=== PATIENT | male | born 1985 | race Caucasian/White ===

== ENCOUNTER 2017-02-07 13:48 | Emergency (ER) | payer SELFPAY ==
[~2017-02-07] VITALS: Ht 175.3 cm; Wt 100.0 kg
[~2017-02-07 13:48] MED LIST: BACTRIM DS1 TAB PO; DOXYCYCL HYC100 MG PO; LORTAB 1010 MG PO; NO HOME MEDS; ULTRAM50 M1 PO
[2017-02-07 13:50] VITALS: BP 137/82
[2017-02-08] MEDS ORDERED: BACTRIM DS1 TAB PO (03:14)
== END 2017-02-07 15:12 | disposition left against medical advice (07) | DRG 951 ==
LOC: ED 13:48 → LWOBS 15:12
DX: Z91.19 Patient's noncompliance with other medical treatment and regimen (principal)

== ENCOUNTER 2017-02-08 02:18 | Emergency (ER) | payer SELFPAY ==
[~2017-02-08] VITALS: Ht 175.3 cm; Wt 103.8 kg
[2017-02-08] MEDS ORDERED: BACTRIM DS1 TAB PO (03:14)
[2017-02-08 03:31] VITALS: BP 132/81
== END 2017-02-08 03:28 | disposition home or self-care (01) | DRG 603 ==
LOC: ED 02:18
DX: L08.9 Local infection of the skin and subcutaneous tissue, unspecified (principal); M79.674 Pain in right toe(s)

== ENCOUNTER 2020-10-05 14:08 | Emergency (ER) | payer SELFPAY ==
[~2020-10-05] VITALS: Ht 175.3 cm; Wt 130.9 kg
[2020-10-05] MEDS ORDERED: MAXZIDE-2537.5 MG/TA PO (14:32)
[2020-10-05] MEDS ORDERED: PROAIR HFA108 MCG/AC IN (14:33)
[2020-10-05 14:49] LABS: HEMATOCRIT 45.2 % (39.0-50.0); HEMOGLOBIN 14.1 g/dl (14.0-18.0); IMMATURE GRANULOCYTES 0.7 % (0.0-5.0); MEAN CORPUSCULAR HGB 29.8 pG CALC (26.0-32.0); MEAN CORPUSCULAR HGB CONC 31.2 g/dL CAL (32.0-36.0); NEUT# 6.72 thou/uL (1.82-7.42); RED BLOOD COUNT 4.73 mill/uL (4.70-6.10); RED CELL DISTRI WIDTH 14.6 % (11.5-15.5)
[2020-10-05 14:55] LABS: MEAN CELL VOLUME 95.6 fL CALC (80.0-100.0)
[2020-10-05 15:02] LABS: ALBUMIN 3.5 g/dL (3.2-5.0); ALKALINE PHOSPHATASE 90 u/l (38-126); BUN 22 mg/dL (9-20); BUN/CREATININE RATIO 23 (12-20 (CALC)); CHLORIDE 102 mmol/l (95-108); CREATININE 0.9 mg/dL (0.7-1.3); GFR > 60 ML/MIN (>=60 (CALC)); GFR FOR AFR.AMER. > 60 ML/MIN (>=60 (CALC)); SODIUM 132 mmol/l (137-146); TOTAL PROTEIN 6.8 g/dL (6.3-8.2)
[2020-10-05 15:06] LABS: ANION GAP 15 (6-22 (CALC)); BILIRUBIN, TOTAL 1.3 mg/dL (0.0-1.4); CARBON DIOXIDE 20 mmol/l (22-30); SGOT/AST 168 u/l (17-59)
[2020-10-05 15:31] LABS: TSH, 3RD GENERATION 4.82 uIU/mL (0.47 - 4.68)
[2020-10-05 15:40] LABS: URINE BILIRUBIN - DIPSTICK NEGATIVE (NEGATIVE); URINE BLOOD DIPSTICK TRACE-INTACT (NEGATIVE); URINE COLOR YELLOW; URINE GLUCOSE - DIPSTICK NEGATIVE (NEGATIVE); URINE KETONE NEGATIVE (NEGATIVE); URINE LEUK ESTERASE NEGATIVE (NEGATIVE); URINE PROTEIN - DIPSTICK TRACE mg/dL (NEG-TRACE); URINE SPECIFIC GRAVITY 1.025; URINE UROBILINOGEN - DIPSTICK 0.2 E.U./dL (0.2)
[2020-10-05 15:41] LABS: URINE NITRITE - DIPSTICK NEGATIVE (Negative)
[2020-10-05 17:30] VITALS: BP 145/80
== END 2020-10-05 21:04 | disposition short-term general hospital (02) | DRG 316 ==
LOC: ED 14:08
PROVIDERS: Emergency Medicine
DX: I27.20 Pulmonary hypertension, unspecified (principal); R74.8 Abnormal levels of other serum enzymes; F19.10 Other psychoactive substance abuse, uncomplicated; J45.909 Unspecified asthma, uncomplicated; F17.210 Nicotine dependence, cigarettes, uncomplicated; Z20.822 Contact with and (suspected) exposure to COVID-19
CPT/HCPCS: Q9967

== ENCOUNTER 2020-10-14 16:09 | Emergency (ER) | payer MEDICAID ==
[~2020-10-14] VITALS: Ht 175.3 cm; Wt 118.0 kg
[~2020-10-14 16:09] MED LIST changes: +MAXZIDE-2537.5 MG/TA PO; +PROAIR HFA108 MCG/AC IN
[2020-10-14 17:02] LABS: IMMATURE GRANULOCYTES 0.2 % (0.0-5.0); MEAN CORPUSCULAR HGB CONC 31.9 g/dL CAL (32.0-36.0); NEUT# 7.65 thou/uL (1.82-7.42); RED CELL DISTRI WIDTH 14.9 % (11.5-15.5)
[2020-10-14 17:16] LABS: ALBUMIN 3.4 g/dL (3.2-5.0); ALKALINE PHOSPHATASE 75 u/l (38-126); ANION GAP 16 (6-22 (CALC)); BILIRUBIN, TOTAL 1.8 mg/dL (0.0-1.4); BUN 30 mg/dL (9-20); BUN/CREATININE RATIO 24 (12-20 (CALC)); CARBON DIOXIDE 20 mmol/l (22-30); CHLORIDE 100 mmol/l (95-108); CREATININE 1.2 mg/dL (0.7-1.3); ETHYL ALCOHOL 0 mg/dl (0-30); GFR > 60 ML/MIN (>=60 (CALC)); GFR FOR AFR.AMER. > 60 ML/MIN (>=60 (CALC)); POTASSIUM 4.8 mmol/l (3.5-5.1); SODIUM 131 mmol/l (137-146); TOTAL PROTEIN 7.1 g/dL (6.3-8.2)
[2020-10-14 17:23] LABS: SGOT/AST 343 u/l (17-59)
[2020-10-14 19:05] LABS: INTERNATIONAL NORMALIZED RATIO 1.7 RATIO (0.7-1.3); PROTHROMBIN TIME 17.2 SECONDS (9.0-12.5)
[2020-10-14 19:06] LABS: D-DIMER 11.05 mg/L (0.19-0.60)
[2020-10-14 19:11] LABS: URINE BILIRUBIN - DIPSTICK NEGATIVE (NEGATIVE); URINE BLOOD DIPSTICK NEGATIVE (NEGATIVE); URINE COLOR YELLOW; URINE GLUCOSE - DIPSTICK NEGATIVE (NEGATIVE); URINE KETONE NEGATIVE (NEGATIVE); URINE LEUK ESTERASE NEGATIVE (NEGATIVE); URINE PROTEIN - DIPSTICK NEGATIVE (NEG-TRACE); URINE SPECIFIC GRAVITY 1.015
[2020-10-14 19:12] LABS: URINE NITRITE - DIPSTICK NEGATIVE (Negative)
[2020-10-14 22:00] VITALS: BP 121/81
--- NOTE | 2020-10-17 14:53 | NUR ---
FINAL RESULTS FAXED TO [facility]
== END 2020-10-14 22:31 | disposition short-term general hospital (02) | DRG 291 ==
LOC: ED 16:09
DX: I50.9 Heart failure, unspecified (principal); J18.9 Pneumonia, unspecified organism; R18.8 Other ascites; K72.90 Hepatic failure, unspecified without coma; I27.20 Pulmonary hypertension, unspecified; R79.9 Abnormal finding of blood chemistry, unspecified; F19.10 Other psychoactive substance abuse, uncomplicated; J45.909 Unspecified asthma, uncomplicated; F17.200 Nicotine dependence, unspecified, uncomplicated; Z91.19 Patient's noncompliance with other medical treatment and regimen; Z20.822 Contact with and (suspected) exposure to COVID-19
CPT/HCPCS: J2060; Q9967

== ENCOUNTER 2021-11-19 11:48 | Inpatient (IN) | payer MEDICAID ==
[2021-11-19] VITALS (45 sets, daily range): BP systolic 103–147; BP diastolic 65–110
[~2021-11-19] VITALS: Ht 175.3 cm; Wt 104.5 kg
--- NOTE | 2021-11-19 11:48 | NUR ---
PT TO ROOM VIA WC
--- NOTE | 2021-11-19 11:51 | NUR ---
STROKE ALERT CALLED AT THIS TIME
--- NOTE | 2021-11-19 12:05 | NUR ---
NURY LEY NOTIFIES [employer] DEPARTMENT MANAGER OF ISSUES WITH TELENEURO. TELENEURO DOC HAS NOT CALLED INTO [facility] YET. SOFTWARE TRAINER NOTIFIED IMMEDIATLEY.
--- NOTE | 2021-11-19 12:07 | NUR ---
BOOTMAKER HAND IN CONTACT WITH TELE NEURO DOC. TELENEURO UNABLE TO LOG INTO [employer], DELAYING CONTACT WITH PT. BOOTMAKER HAND AWARE, PROVIDER AWARE
[2021-11-19 12:10] LABS: IMMATURE GRANULOCYTES 0.3 % (0.0-5.0); MEAN CELL VOLUME 92.1 fL CALC (80.0-100.0); MEAN CORPUSCULAR HGB CONC 32.6 g/dL CAL (32.0-36.0); NEUT# 6.32 thou/uL (1.82-7.42); RED BLOOD COUNT 4.67 mill/uL (4.70-6.10); RED CELL DISTRI WIDTH 13.4 % (11.5-15.5)
[2021-11-19 12:22] LABS: ALBUMIN 3.9 g/dL (3.2-5.0); ALKALINE PHOSPHATASE 70 u/l (38-126); BUN 12 mg/dL (9-20); BUN/CREATININE RATIO 11 (12-20 (CALC)); CARBON DIOXIDE 25 mmol/l (22-30); CHLORIDE 107 mmol/l (95-108); CREATININE 1.1 mg/dL (0.7-1.3); GFR FOR AFR.AMER. > 60 ML/MIN (>=60 (CALC)); GFR OTHER RACES > 60 ML/MIN (>=60 (CALC)); SODIUM 142 mmol/l (137-146)
[2021-11-19 12:25] LABS: ANION GAP 14 (6-22 (CALC)); POTASSIUM 4.1 mmol/l (3.5-5.1); SGOT/AST 23 u/l (17-59)
[2021-11-19 12:26] LABS: INTERNATIONAL NORMALIZED RATIO 1.1 RATIO (0.7-1.3); PROTHROMBIN TIME 11.1 SECONDS (9.0-12.5)
[2021-11-19 14:55] LABS: URINE BILIRUBIN - DIPSTICK NEGATIVE (NEGATIVE); URINE BLOOD DIPSTICK NEGATIVE (NEGATIVE); URINE COLOR YELLOW; URINE GLUCOSE - DIPSTICK NEGATIVE (NEGATIVE); URINE KETONE NEGATIVE (NEGATIVE); URINE LEUK ESTERASE NEGATIVE (NEGATIVE); URINE PH 5.5 (4.5-8.0); URINE PROTEIN - DIPSTICK 30 mg/dL (NEG-TRACE); URINE SPECIFIC GRAVITY 1.025; URINE UROBILINOGEN - DIPSTICK 0.2 E.U./dL (0.2)
[2021-11-19 14:57] LABS: URINE NITRITE - DIPSTICK NEGATIVE (Negative); URINE RBC 0-2 RBC/hpf (0-5); URINE WBC 0-2 WBC/hpf (0-5)
--- NOTE | 2021-11-19 15:27 | NUR ---
PT ARRIVES TO ICU4 VIA STRETCHER FROM THE ER ACCOMPANIED BY NURY LEY. PT IS ALERT AND ORIENTED X 3. NIHSS SCORE 3 FOR FACIAL WEAKNESS AND LEFT ARM ATAXIA. PT INDEPENDENT AT HOME, STATES THAT HE DID USE METH THIS MORNING.
--- NOTE | 2021-11-19 17:45 | NUR ---
PT CONTINUES TO IMPROVE, ABLE TO TOUCH NOSE AND FINGER WITHOUT ATAXIA. FACIAL DROOP IS MINIMAL. PT ABLE TO EAT SUPPER WITHOUT CHOKING.
--- NOTE | 2021-11-19 19:22 | NUR ---
PATIENT LAYING IN BED AT THIS TIME WATCHING TV. PATIENT DENIES ANY PAIN AND OR HEADACHE AT THIS TIME. MEND EXAM DONE AND IS "0" AT THIS THIS TIME AND WITHOUT DEFICITS. PATIENT STATES HIS PAIN LEVEL IS A "O". RN ASSESSEMENT DONE AT THIS TIME SEE INTERVENTION. LUNG ROTH ARE CLEAR IN ALL ROTH, BOWEL SOUNDS PRESENT IN ALL QUADRANTS. PATIENT MOVES ALL LIMBS WITHOUT ANY DEFICITS AND SPEECH IS CLEAR AND GRASP ARE STRONG AND EQUAL. PATIENT WOOD STAINER CURRENTLY READING SR AND HR OF 98 AND SPO2 IS 98 % ON ROOM AIR. SIDERAILS ARE UP X 2 CALL LIGHT IS WITHIN REACH PATIENT IS ALERT AND ORIENTED X 3 WILL CONTINUE TO MONITOR. PATIENT DOES HAVE NOTED DRY AND HEALING STRACHES ON LOWER LEGS AND ARMS PATIENT STATES HE WAS IN THE [place] "PICKING" BERRIES. PATIENT REFUSES TO TAKE OFF HIS JACKIE SHORTS AND REFUSED A BATH AT THIS TIME.
--- NOTE | 2021-11-19 20:00 | NUR ---
PATIENT MEND EXAM SHOWS NO CHANGE AT THIS TIME AND IS "0". PATIENT DEINES ANY HEADACHES AND OR PAIN ANYWHERE. SPEECH IS CLEAR AND GRASP ARE STRONG. WILL CONTINUT TO MONITOR.
--- NOTE | 2021-11-19 21:00 | NUR ---
MEND EXAM UNCHANGED FROM PREVIOUS EXAM. PATIENT SITTING UP AT BEDSIDE DRINKING WATER WITHOUT DIFFICULTLY NO SLURRED SPEECH NOTED OR COUGHING. SIDERAILS ARE UP CALL LIGHT WITHIN REACH.
--- NOTE | 2021-11-19 22:00 | NUR ---
PATIENT RESTING IN BED AT THIS TIME. NEURO CHECK DONE AND ARE NEGATIVE FOR ANY DEFICITS. GRASPS ARE EQUAL AND STRONG PUPILS EQUAL AND REACTIVE. MEND EXAM REMAINS "0" AND UNCHANGED SINCE LAST EXAM. PATIENT DENIES ANY PAIN AND OR NEEDS INTERNATIONAL LOGISTICS MANAGER READING ST AT 100 AND BP IS 137/93 AND PULSE OX IS 93% ON ROOM AIR. SIDERAILS ARE UP X 2 CALL LIGHT IS WITHIN REACH. WILL CONTINUE TO MONITOR.
--- NOTE | 2021-11-19 23:00 | NUR ---
PATIENT AWAKEN AT THIS TIME. MEND EXAM DONE AND REMAINS UNCHANGED AT THIS TIME. SIDERAILS ARE UP CALL LIGHT IS WITHIN REACH. PATIENT DENIES ANY PAIN CURRENTLY. WILL CONTINUE TO MONITOR.
--- NOTE | 2021-11-19 23:22 | NUR ---
SPOKE TO DR. OBRIEN REGARDING PATIENT DIASTOLIC BP AND DR. OBRIEN STATED TO JUST CONTINUE TO MONITOR. NO NEW ORDERS GIVEN.
[2021-11-20] VITALS (43 sets, daily range): BP systolic 91–195; BP diastolic 70–120
--- NOTE | 2021-11-20 | NUR ---
PATIENT AWAKEN AT THIS TIME FOR MEND EXAM AND NEURO CHECK. MEND AND NEURO CHECK REMAIN UNCHANGED FROM PREVIOUS EXAMS. PATIENT DENIES ANY PAIN AND NEEDS CURRENTLY PATIENT ACOUSTICAL CARPENTER IS READING SINUS RHYTHM AND HR OF 97 PATIENT BP AT THIS TIME IS 97/71 PATIENT SPO2 IS 98% ON ROOM AIR. SIDERAILS ARE UP X 2 AND CALL LIGHT IS WIHTIN REACH. WILL CONTINUE TO MONITOR.
--- NOTE | 2021-11-20 01:00 | NUR ---
MEND EXAM UNCHANGED AT THIS TIME. SIDERAILS ARE UP X 2 CALL LIGHT IS WITHIN REACH.
--- NOTE | 2021-11-20 02:03 | NUR ---
NO CHANGES IN THE MEND EXAM PATIENT RESULTS REMAIN "0". SIDERAILS ARE UP CALL LIGHT WITHIN REACH WILL CONTINUE TO MONITOR.
--- NOTE | 2021-11-20 03:00 | NUR ---
MEND EXAM UNCHANGED AT THIS TIME. WILL CONTINUE TO FOLLOW.
--- NOTE | 2021-11-20 04:00 | NUR ---
PATIENT AWAKEN AT THIS TIME TO PERFORM MEND EXAM AND RESULTS WERE "0" AT THIS TIME. PATIENTS NEURO CHECKS REMAIN UNCHANGED AT THIST TIME. SIDERAILS ARE UP X2 PATIENT DENIES ANY PAIN BP CURRENTLY READING 108/74. OLIVER FILTER OPERATOR READING HR SINUS RHYTHM AND HR IS 94. PATIENT WILL CONTINUE TO BE MONITORED.
[2021-11-20 05:09] LABS: HEMATOCRIT 46.4 % (39.0-50.0); HEMOGLOBIN 14.8 g/dl (14.0-18.0); IMMATURE GRANULOCYTES 0.3 % (0.0-5.0); MEAN CELL VOLUME 94.3 fL CALC (80.0-100.0); MEAN CORPUSCULAR HGB 30.1 pG CALC (26.0-32.0); MEAN CORPUSCULAR HGB CONC 31.9 g/dL CAL (32.0-36.0); NEUT# 5.46 thou/uL (1.82-7.42); RED BLOOD COUNT 4.92 mill/uL (4.70-6.10); RED CELL DISTRI WIDTH 13.5 % (11.5-15.5)
[2021-11-20 05:27] LABS: ALBUMIN 3.6 g/dL (3.2-5.0); ALKALINE PHOSPHATASE 71 u/l (38-126); ANION GAP 15 (6-22 (CALC)); BILIRUBIN, TOTAL 1.1 mg/dL (0.0-1.4); BUN 12 mg/dL (9-20); BUN/CREATININE RATIO 13 (12-20 (CALC)); CARBON DIOXIDE 24 mmol/l (22-30); CHLORIDE 104 mmol/l (95-108); GFR FOR AFR.AMER. > 60 ML/MIN (>=60 (CALC)); GFR OTHER RACES > 60 ML/MIN (>=60 (CALC)); POTASSIUM 4.4 mmol/l (3.5-5.1); SGOT/AST 21 u/l (17-59); SODIUM 138 mmol/l (137-146); TOTAL PROTEIN 6.6 g/dL (6.3-8.2)
--- NOTE | 2021-11-20 06:00 | NUR ---
PATIENT RESTING IN BED AT THIS TIME. MAINTAINABILITY ENGINEER IN PLACE AND READING SR AND HR OF 95 SIDERAILS ARE UP CALL LIGHT WITHIN REACH. PATIENT DENEIS ANY NEEDS.
--- NOTE | 2021-11-20 08:50 | NUR ---
PT SEEN AWAKE, ALERT, ORIENTED X 3. PT NIHSS ZERO, SEEN TO HAVE NORMAL LEFT ARM FUNCTION AND SMILE. PT WITHOUT COMPLAINT, AT REST IN THE BED WAITING FOR THE PHYSICIAN.
[2021-11-20] MEDS ORDERED: ASPIRIN 81 LOW81 MG PO (10:11)
--- NOTE | 2021-11-20 12:13 | NUR ---
PT SEEN BY DR OBRIEN THIS MORNING, [place] WARNING GIVEN REGARDING DRUG USE AND TAKING BETTER CARE OF HIMSELF. PT AWARE OF UPCOMING MRI. PT AWARE OF UPCOMING TELENEURO CONSULT THIS AFTERNOON. PT REMAINS A ZERO ON MEND AND NIHSS.
[2021-11-20 13:14] LABS: CHOLESTEROL HDL RATIO 2.6 (<4.4 (CALC))
--- NOTE | 2021-11-20 14:14 | NUR ---
PT HAS BEEN TO MRI AND BACK, AWAITING RESULTS. PT WANTS TO GO HOME, AWARE THAT WE ARE WAITING FOR RESULTS. NO DISTRESS OR COMPLAINTS.
--- NOTE | 2021-11-20 15:03 | NUR ---
PT HAS GONE HOME. PT DID NOT WANT TO WAIT FOR THE RESULTS OF THE MRI. IVs REMOVED, PT PROVIDED DISCHARGE INSTRUCTIONS WHICH HE VERBALIZED THAT HE UNDERSTOOD. PT AMBULATED TO LOBBY WITH STEADY GAIT.
== END 2021-11-20 15:00 | disposition home or self-care (01) | DRG 62 ==
LOC: ED 11:48 → ED-I 13:35 → ED 14:06 → ICU 14:07
PROVIDERS: Family Medicine; Psychiatry & Neurology Neurology; ADMIT Internal Medicine; ATTEND Internal Medicine
DX: G45.9 Transient cerebral ischemic attack, unspecified (principal); I42.9 Cardiomyopathy, unspecified; I10 Essential (primary) hypertension; F15.10 Other stimulant abuse, uncomplicated; F12.10 Cannabis abuse, uncomplicated; T50.916A Underdosing of multiple unspecified drugs, medicaments and biological substances, initial encounter; Z91.128 Patient's intentional underdosing of medication regimen for other reason; Z20.822 Contact with and (suspected) exposure to COVID-19
CPT/HCPCS: J3101; Q3014; Q9967

== ENCOUNTER 2022-04-22 22:01 | Inpatient (IN) | payer OTHER ==
[~2022-04-22] VITALS: Ht 175.3 cm; Wt 145.0 kg
[~2022-04-22 22:01] MED LIST changes: +ASPIRIN 81 LOW81 MG PO
[2022-04-22 22:18] VITALS: BP 154/104
[2022-04-22 22:28] VITALS: BP 154/101
[2022-04-22 22:32] VITALS: BP 133/95
[2022-04-22 22:46] LABS: BASO% 0.7 % (0-3); EOS% 0.4 % (0-8); HEMATOCRIT 42.6 % (39.0-50.0); HEMOGLOBIN 13.6 g/dl (14.0-18.0); IMMATURE GRANULOCYTES 0.4 % (0.0-5.0); LYMPH% 14.4 % (15-41); MEAN CELL VOLUME 93.2 fL CALC (80.0-100.0); MEAN CORPUSCULAR HGB 29.8 pG CALC (26.0-32.0); MEAN CORPUSCULAR HGB CONC 31.9 g/dL CAL (32.0-36.0); MONO% 12.2 % (2-13); NEUT# 5.9 thou/uL (1.82-7.42); NEUT% 71.9 % (42-76); RED BLOOD COUNT 4.57 mill/uL (4.70-6.10); RED CELL DISTRI WIDTH 14.9 % (11.5-15.5)
[2022-04-22 22:52] VITALS: BP 107/84
[2022-04-22 23:00] LABS: ALKALINE PHOSPHATASE 85 u/l (38-126); BUN 17 mg/dL (9-20); BUN/CREATININE RATIO 16 (12-20 (CALC)); CARBON DIOXIDE 24 mmol/l (22-30); CHLORIDE 100 mmol/l (95-108); GFR FOR AFR.AMER. > 60 ML/MIN (>=60 (CALC)); GFR OTHER RACES > 60 ML/MIN (>=60 (CALC)); POTASSIUM 4.3 mmol/l (3.5-5.1); TOTAL PROTEIN 7.4 g/dL (6.3-8.2)
[2022-04-22 23:01] VITALS: BP 117/86
[2022-04-22 23:06] LABS: URINE BILIRUBIN - DIPSTICK NEGATIVE (NEGATIVE); URINE BLOOD DIPSTICK MODERATE (NEGATIVE); URINE COLOR YELLOW; URINE GLUCOSE - DIPSTICK NEGATIVE (NEGATIVE); URINE KETONE NEGATIVE (NEGATIVE); URINE LEUK ESTERASE NEGATIVE (NEGATIVE); URINE PH 5.5 (4.5-8.0); URINE PROTEIN - DIPSTICK 100 mg/dL (NEG-TRACE); URINE SPECIFIC GRAVITY >=1.030
[2022-04-22 23:08] LABS: URINE NITRITE - DIPSTICK NEGATIVE (Negative)
[2022-04-22 23:10] LABS: ANION GAP 11 (6-22 (CALC)); BILIRUBIN, TOTAL 2.6 mg/dL (0.0-1.4); SGOT/AST 856 u/l (17-59); SODIUM 131 mmol/l (137-146)
[2022-04-22 23:16] VITALS: BP 127/66
[2022-04-22 23:18] LABS: URINE SQUAMOUS EPITHELIAL CELL FEW EPI/hpf (0-FEW); URINE WBC 0-2 WBC/hpf (0-5)
[2022-04-22 23:19] LABS: URINE MUCUS FEW hpf (NONE-FEW)
[2022-04-22 23:21] LABS: ETHYL ALCOHOL 0 mg/dl (0-30)
[2022-04-23] VITALS (41 sets, daily range): BP systolic 76–175; BP diastolic 48–133
== END 2022-04-23 16:26 | disposition short-term general hospital (02) | DRG 292 ==
LOC: ED 22:01 → ED-I 04-23 01:15 → ED 04-23 01:41 → ICU 04-23 01:42
PROVIDERS: Emergency Medicine; ADMIT Internal Medicine; ATTEND Internal Medicine
PROC: 0T9B70Z Drainage of Bladder with Drainage Device, Via Natural or Artificial Opening (ICD-10-PCS; principal; 2022-04-23)
DX: R57.0 Cardiogenic shock (principal); E87.1 Hypo-osmolality and hyponatremia; J44.0 Chronic obstructive pulmonary disease with (acute) lower respiratory infection; R74.8 Abnormal levels of other serum enzymes; I11.0 Hypertensive heart disease with heart failure; I50.9 Heart failure, unspecified; I42.9 Cardiomyopathy, unspecified; F15.10 Other stimulant abuse, uncomplicated; F12.10 Cannabis abuse, uncomplicated; E66.9 Obesity, unspecified; F17.210 Nicotine dependence, cigarettes, uncomplicated; T50.916A Underdosing of multiple unspecified drugs, medicaments and biological substances, initial encounter; Z91.128 Patient's intentional underdosing of medication regimen for other reason; Z86.73 Personal history of transient ischemic attack (TIA), and cerebral infarction without residual deficits; Z20.822 Contact with and (suspected) exposure to COVID-19
CPT/HCPCS: J1650; J2060; Q9967

== ENCOUNTER 2023-01-14 21:53 | Emergency (ER) | payer OTHER ==
[~2023-01-14] VITALS: Ht 175.3 cm; Wt 137.0 kg
[2023-01-14 22:00] VITALS: BP 138/89
[2023-01-14] MEDS ORDERED: LASIX 20 MG TAB20 MG PO (22:10)
[2023-01-14] MEDS ORDERED: POT CHLORIDE10 ME5 PO (22:11)
[2023-01-14 22:15] VITALS: BP 127/83
[2023-01-14 22:30] VITALS: BP 113/63
[2023-01-14 22:45] VITALS: BP 131/93
[2023-01-14 22:54] LABS: BASO% 0.5 % (0-3); EOS% 1.9 % (0-8); IMMATURE GRANULOCYTES 0.2 % (0.0-5.0); LYMPH% 13.5 % (15-41); MEAN CELL VOLUME 98.1 fL CALC (80.0-100.0); MEAN CORPUSCULAR HGB 31.1 pG CALC (26.0-32.0); MEAN CORPUSCULAR HGB CONC 31.7 g/dL CAL (32.0-36.0); NEUT# 8.63 thou/uL (1.82-7.42); NEUT% 74.9 % (42-76); RED BLOOD COUNT 4.18 mill/uL (4.70-6.10); RED CELL DISTRI WIDTH 13.5 % (11.5-15.5); URINE BILIRUBIN - DIPSTICK Negative (NEGATIVE); URINE BLOOD DIPSTICK Trace-lysed (NEGATIVE); URINE GLUCOSE - DIPSTICK Negative (NEGATIVE); URINE KETONE Negative (NEGATIVE); URINE LEUK ESTERASE Negative (NEGATIVE); URINE NITRITE - DIPSTICK Negative (Negative); URINE PH 5.5 (4.5-8.0); URINE PROTEIN - DIPSTICK Trace mg/dL (NEG-TRACE)
[2023-01-14 22:56] LABS: URINE COLOR Yellow
[2023-01-14 23:11] LABS: ALBUMIN 3.8 g/dL (3.2-5.0); ALKALINE PHOSPHATASE 86 u/l (38-126); ANION GAP 11 (6-22 (CALC)); BUN 17 mg/dL (9-20); BUN/CREATININE RATIO 14 (12-20 (CALC)); CARBON DIOXIDE 27 mmol/l (22-30); CHLORIDE 98 mmol/l (95-108); CPK 192 u/l (55-170); CREATININE 1.2 mg/dL (0.7-1.3); GFR FOR AFR.AMER. > 60 ML/MIN (>=60 (CALC)); GFR OTHER RACES > 60 ML/MIN (>=60 (CALC)); LIPASE 24 u/l (23-300); MAGNESIUM 1.9 mg/dL (1.6-2.3); POTASSIUM 3.9 mmol/l (3.5-5.1); SODIUM 132 mmol/l (137-146); TOTAL PROTEIN 7.1 g/dL (6.3-8.2)
[2023-01-14 23:13] LABS: D-DIMER 0.92 mg/L (0.19-0.60); INTERNATIONAL NORMALIZED RATIO 1.2 RATIO (0.7-1.3); PROTHROMBIN TIME 11.5 SECONDS (9.0-12.5); SGOT/AST 38 u/l (17-59)
[2023-01-14 23:42] LABS: TSH, 3RD GENERATION 3.99 uIU/mL (0.47 - 4.68)
[2023-01-15] VITALS (9 sets, daily range): BP systolic 101–146; BP diastolic 65–90
[2023-01-15] MEDS ORDERED: FLOXIN OTIC0.3 % OT (06:00)
[2023-01-15] MEDS ORDERED: OMNI-PAC300 MG PO (06:00)
== END 2023-01-15 06:27 | disposition home or self-care (01) ==
LOC: ED 21:53
PROVIDERS: Internal Medicine
DX: H66.91 Otitis media, unspecified, right ear (principal); H60.91 Unspecified otitis externa, right ear; R00.0 Tachycardia, unspecified; R10.9 Unspecified abdominal pain; I50.9 Heart failure, unspecified; F15.10 Other stimulant abuse, uncomplicated; E66.9 Obesity, unspecified; J45.909 Unspecified asthma, uncomplicated; F17.210 Nicotine dependence, cigarettes, uncomplicated
CPT/HCPCS: Q9967

== ENCOUNTER 2024-06-01 23:09 | Emergency (ER) | payer MEDICARE, MEDICAID ==
[~2024-06-01] VITALS: Ht 175.3 cm; Wt 146.0 kg
[~2024-06-01 23:09] MED LIST changes: +ALDACTONE25 MG PO; +ALLOPURINOL200 MG; +ALLOPURINOL300 MG PO; +BUMETANIDE1 MG PO; +COZAAR25 MG PO; +FLOXIN OTIC0.3 % OT; +LASIX 20 MG TAB20 MG PO; +LASIX 40 MG TAB40 MG PO; +METOLAZONE2.5 MG PO; +METOPROLOL SUCC50 MG PO; +METOPROLOL100 M1 PO; +OMNI-PAC300 MG PO; +POT CHLORIDE10 ME5 PO
[2024-06-01 23:28] VITALS: BP 130/104
[2024-06-01] MEDS ORDERED: ALBUTEROL SULFATE 2.5 MG VIAL IN ONE (23:40)
[2024-06-01] MEDS ORDERED: BUMETANIDE 1 MG/4 ML VIAL IV ONE (23:40)
[2024-06-01 23:44] LABS: BASO% 0.4 % (0-3); EOS% 0.8 % (0-8); HEMOGLOBIN 14.9 g/dl (14.0-18.0); IMMATURE GRANULOCYTES 0.4 % (0.0-5.0); LYMPH% 16.4 % (15-41); MEAN CELL VOLUME 100.4 fL CALC (80.0-100.0); MEAN CORPUSCULAR HGB 30.8 pG CALC (26.0-32.0); MEAN CORPUSCULAR HGB CONC 30.7 g/dL CAL (32.0-36.0); MONO% 7.9 % (2-13); NEUT# 8.33 thou/uL (1.82-7.42); NEUT% 74.1 % (42-76); RED BLOOD COUNT 4.84 mill/uL (4.70-6.10); RED CELL DISTRI WIDTH 15.4 % (11.5-15.5)
[2024-06-01 23:46] LABS: HEMATOCRIT 48.6 % (39.0-50.0)
[2024-06-02 00:11] LABS: ALBUMIN 4.1 g/dL (3.2-5.0); BILIRUBIN, TOTAL 2.5 mg/dL (0.2-1.3); CREATININE 1.3 mg/dL (0.7-1.3); POTASSIUM 4.7 mmol/l (3.5-5.1); TOTAL PROTEIN 7.8 g/dL (6.3-8.2)
[2024-06-02 00:19] LABS: INTERNATIONAL NORMALIZED RATIO 1.4 RATIO (0.7-1.3)
[2024-06-02 00:24] LABS: PROTHROMBIN TIME 15.1 SECONDS (9.0-12.5)
[2024-06-02] MEDS ORDERED: FUROSEMIDE 40 MG/4 ML SDV IV ONE (00:30)
[2024-06-02] MEDS ORDERED: CLINDAMYCIN PHOSPHATE 50 ML IV ONE (01:55)
[2024-06-02] MEDS ORDERED: CLEOCIN300 MG PO (03:14)
[2024-06-02 04:01] VITALS: BP 139/79
== END 2024-06-02 04:02 | disposition home or self-care (01) ==
LOC: ED 23:09
PROVIDERS: Family Medicine
DX: L03.116 Cellulitis of left lower limb (principal); I11.0 Hypertensive heart disease with heart failure; I50.9 Heart failure, unspecified; J45.909 Unspecified asthma, uncomplicated; E66.01 Morbid (severe) obesity due to excess calories; F17.210 Nicotine dependence, cigarettes, uncomplicated; S81.812A Laceration without foreign body, left lower leg, initial encounter; X58.XXXA Exposure to other specified factors, initial encounter; F15.10 Other stimulant abuse, uncomplicated; R79.89 Other specified abnormal findings of blood chemistry; Z86.73 Personal history of transient ischemic attack (TIA), and cerebral infarction without residual deficits
CPT/HCPCS: J0736; J1939; J1940

== ENCOUNTER 2024-06-03 11:49 | Emergency (ER) | payer MEDICARE, MEDICAID ==
[~2024-06-03] VITALS: Ht 175.3 cm; Wt 146.8 kg
[2024-06-03] VITALS (35 sets, daily range): BP systolic 105–172; BP diastolic 50–151
[~2024-06-03 11:49] MED LIST changes: +CLEOCIN300 MG PO
[2024-06-03] MEDS ORDERED: FUROSEMIDE 40 MG/4 ML SDV IV ONE (12:15)
[2024-06-03] MEDS ORDERED: methylPREDNISolone SODIUM SUCC 125 MG/2 ML SDV IM ONE (12:15)
[2024-06-03] MEDS ORDERED: IPRATROPIUM-Albuterol 0.5MG-2.5MG/3 ML NEB ONE ×2 (12:15)
[2024-06-03] MEDS ORDERED: NITROGLYCERIN IN D5W 250 ML IV ONE (12:15)
[2024-06-03] MEDS ORDERED: SODIUM CHLORIDE 0.9% 250 ML IV PRN (12:15)
[2024-06-03] MEDS ORDERED: MIDAZOLAM HCL 2 MG/2 ML VIAL IV ONE (12:20)
[2024-06-03 12:46] LABS: BASO% 0.1 % (0-3); HEMATOCRIT 50.5 % (39.0-50.0); HEMOGLOBIN 15.8 g/dl (14.0-18.0); IMMATURE GRANULOCYTES 0.6 % (0.0-5.0); LYMPH% 6.5 % (15-41); MEAN CELL VOLUME 99.4 fL CALC (80.0-100.0); MEAN CORPUSCULAR HGB 31.1 pG CALC (26.0-32.0); MEAN CORPUSCULAR HGB CONC 31.3 g/dL CAL (32.0-36.0); MONO% 6.6 % (2-13); NEUT# 16.89 thou/uL (1.82-7.42); NEUT% 86.2 % (42-76); RED BLOOD COUNT 5.08 mill/uL (4.70-6.10); RED CELL DISTRI WIDTH 15.5 % (11.5-15.5)
[2024-06-03 12:57] LABS: ALBUMIN 4.6 g/dL (3.2-5.0); TOTAL PROTEIN 8.7 g/dL (6.3-8.2)
[2024-06-03] MEDS ORDERED: MORPHINE SULFATE 4 MG/ML VIAL IV ONE (13:20)
[2024-06-03 13:24] LABS: BILIRUBIN, TOTAL 5.2 mg/dL (0.2-1.3); POTASSIUM 5.8 mmol/l (3.5-5.1)
[2024-06-03] MEDS ORDERED: DEXTROSE 10% 500 ML BAG IV ONE (13:25)
[2024-06-03] MEDS ORDERED: AZTREONAM 1 GM in SODIUM CHLORIDE 0.9% 50 ML IV ONE (14:10)
[2024-06-03] MEDS ORDERED: VANCOMYCIN HCL 1 GM in SODIUM CHLORIDE 0.9% 500 ML IV ONE (14:10)
[2024-06-03 18:02] LABS: URINE BLOOD DIPSTICK Moderate (NEGATIVE); URINE COLOR Amber; URINE GLUCOSE - DIPSTICK Negative (NEGATIVE); URINE KETONE Trace mg/dL (NEGATIVE); URINE LEUK ESTERASE Negative (NEGATIVE); URINE NITRITE - DIPSTICK Negative (Negative); URINE PROTEIN - DIPSTICK >=300 mg/dL (NEG-TRACE); URINE SPECIFIC GRAVITY 1.025
[2024-06-03 18:03] LABS: URINE COARSE GRANULAR CAST FEW lpf; URINE HYALINE CAST MANY lpf (NONE-RARE); URINE SPERM MODERATE hpf (NONE-RARE); URINE TRANSITIONAL EPI. CELLS FEW hpf; URINE WBC 0-2 WBC/hpf (0-5)
[2024-06-04 00:01] VITALS: BP 120/85
[2024-06-04 00:16] VITALS: BP 104/73
[2024-06-04 00:31] VITALS: BP 115/69
[2024-06-04 00:46] VITALS: BP 108/71
[2024-06-04 01:01] VITALS: BP 108/73
[2024-06-04 01:17] VITALS: BP 108/73
--- NOTE | 2024-06-04 12:34 | NUR ---
Blood culture ID result of Streptococcus agalactiae called and faxed to nurse Eller at [facility].
== END 2024-06-04 01:17 ==
LOC: ED 11:49
PROVIDERS: Family Medicine
PROC: 0T9B70Z Drainage of Bladder with Drainage Device, Via Natural or Artificial Opening (ICD-10-PCS; principal; 2024-06-03)
PROC: 5A09357 Assistance with Respiratory Ventilation, Less than 24 Consecutive Hours, Continuous Positive Airway Pressure (ICD-10-PCS; 2024-06-03)
PROC: 05HM33Z Insertion of Infusion Device into Right Internal Jugular Vein, Percutaneous Approach (ICD-10-PCS; 2024-06-03)
DX: I42.7 Cardiomyopathy due to drug and external agent (principal); I11.0 Hypertensive heart disease with heart failure; I50.23 Acute on chronic systolic (congestive) heart failure; R10.11 Right upper quadrant pain; E80.6 Other disorders of bilirubin metabolism; R74.01 Elevation of levels of liver transaminase levels; R09.02 Hypoxemia; F15.10 Other stimulant abuse, uncomplicated; F12.10 Cannabis abuse, uncomplicated; F17.200 Nicotine dependence, unspecified, uncomplicated; Z86.73 Personal history of transient ischemic attack (TIA), and cerebral infarction without residual deficits; Z91.199 Patient's noncompliance with other medical treatment and regimen due to unspecified reason; Z20.822 Contact with and (suspected) exposure to COVID-19; Z86.711 Personal history of pulmonary embolism; E66.01 Morbid (severe) obesity due to excess calories; Z68.42 Body mass index [BMI] 45.0-49.9, adult
CPT/HCPCS: J0457; J1940; J2305; J3370; Q9967